=== PATIENT | female | born 1995 | race Caucasian/White ===

== ENCOUNTER → 2023-02-23 | Outpatient (REF) | payer BC | LOC: M SFHCWAGY 17:44 | PROVIDERS: ATTEND Nurse Practitioner Family | DX: Z12.4 Encounter for screening for malignant neoplasm of cervix (principal) ==

== ENCOUNTER → 2023-05-08 | Outpatient (CLI) | payer BC ==
[2023-05-08 15:46] LABS: HEMATOCRIT 39.2 % (36.0-47.0); HEMOGLOBIN 12.4 g/dl (12.0-15.5); MEAN CORPUSCULAR HEMOGLOBIN 26.6 pg (27.0-33.0); MEAN CORPUSCULAR HGB CONC 31.6 g/dl (32.0-36.5); MEAN CORPUSCULAR VOLUME 84.1 fl (80.0-96.0); PLATELET COUNT, AUTOMATED 303 10^3/uL (150-450); RED BLOOD COUNT 4.66 10^6/uL (4.00-5.40); WHITE BLOOD COUNT 9.1 10^3/uL (4.0-10.0)
[2023-05-08 16:03] LABS: ALKALINE PHOSPHATASE 100 U/L (46-116); ALT/SGPT 53 U/L (7.0-40); AST/SGOT 29 U/L (<34); BILIRUBIN,TOTAL 0.5 MG/DL (0.3-1.2); BLOOD UREA NITROGEN 11 MG/DL (9-23); CARBON DIOXIDE LEVEL 30 MMOL/L (20-31); CHLORIDE LEVEL 105 MMOL/L (98-107); CREATININE FOR GFR 0.78 MG/DL (0.55-1.30); GLOMERULAR FILTRATION RATE > 60.0 (>60); GLUCOSE, FASTING 88 MG/DL (60-100); POTASSIUM SERUM 4.3 MMOL/L (3.5-5.1); SODIUM LEVEL 141 MMOL/L (136-145); TOTAL PROTEIN 6.5 G/DL (5.7-8.2)
[2023-05-08 16:04] LABS: THYROID STIMULATING HORMONE 1.217 uIU/ML (0.55-4.78)
[2023-05-08 16:15] LABS: HEMOGLOBIN A1c 5.5 % (4.0-6.0)
== END ==
LOC: M PLALAB 11:46
PROVIDERS: ATTEND Obstetrics & Gynecology
DX: N97.9 Female infertility, unspecified (principal)

== ENCOUNTER → 2023-05-26 | Outpatient (CLI) | payer BC | LOC: M WHC 10:25 | PROVIDERS: ATTEND Obstetrics & Gynecology | DX: N97.9 Female infertility, unspecified (principal) ==

== ENCOUNTER → 2023-06-02 | Outpatient (CLI) | payer BC ==
[~2023-06-02] MED LIST: ISOVUE-370 76% 100ML VIAL As Ordered ONE
== END ==
LOC: M RADPRO 11:25
PROVIDERS: ATTEND Obstetrics & Gynecology
DX: N97.9 Female infertility, unspecified (principal)
CPT/HCPCS: 58340; 74740; Q9967

== ENCOUNTER → 2023-12-18 | Outpatient (CLI) | payer OTHER ==
[~2023-12-18] MED LIST changes: -ISOVUE-370 76% 100ML VIAL As Ordered ONE; +NAPR-837 PO; +ONDA4TAB6 PO
[2023-12-18 11:27] LABS: HEMATOCRIT 40.8 % (36.0-47.0); HEMOGLOBIN 13.4 g/dl (12.0-15.5); MEAN CORPUSCULAR HEMOGLOBIN 28.9 pg (27.0-33.0); MEAN CORPUSCULAR HGB CONC 32.8 g/dl (32.0-36.5); MEAN CORPUSCULAR VOLUME 87.9 fl (80.0-96.0); PLATELET COUNT, AUTOMATED 265 10^3/uL (150-450); RED BLOOD COUNT 4.64 10^6/uL (4.00-5.40); WHITE BLOOD COUNT 8.8 10^3/uL (4.0-10.0)
[2023-12-18 11:38] LABS: HEMOGLOBIN A1c 5.7 % (4.0-6.0)
[2023-12-18 11:59] LABS: GC DNA AMPLIFICATION NEGATIVE (NEGATIVE)
[2023-12-18 16:08] LABS: HIV 1&2 SCREEN NEGATIVE (NEGATIVE)
[2023-12-18 16:22] LABS: HEPATITIS C VIRUS ABY INDEX < 0.02 INDEX (<0.8)
== END ==
LOC: M PLALAB 08:27
PROVIDERS: ATTEND Advanced Practice Midwife
DX: Z34.01 Encounter for supervision of normal first pregnancy, first trimester (principal)

== ENCOUNTER → 2023-12-18 | Outpatient (CLI) | payer OTHER ==
[2023-12-18 11:24] LABS: ALBUMIN 3.7 G/DL (3.2-5.2); ALKALINE PHOSPHATASE 78 U/L (46-116); ALT/SGPT 36 U/L (7.0-40); AST/SGOT 13 U/L (<34); BILIRUBIN,TOTAL 0.6 MG/DL (0.3-1.2); BLOOD UREA NITROGEN 6 MG/DL (9-23); CALCIUM LEVEL 9.3 MG/DL (8.5-10.1); CARBON DIOXIDE LEVEL 26 MMOL/L (20-31); CHLORIDE LEVEL 105 MMOL/L (98-107); CHOLESTEROL LEVEL 151 MG/DL (<200); CHOLESTEROL RISK RATIO 2.81 (<5); CREATININE FOR GFR 0.65 MG/DL (0.55-1.30); GLOMERULAR FILTRATION RATE > 60.0 (>60); GLUCOSE, FASTING 113 MG/DL (60-100); HDL CHOLESTEROL 53.7 MG/DL (>40); LDL CHOLESTEROL 83.3 MG/DL (<100); NON-HDL-C 97.3 MG/DL; POTASSIUM SERUM 4.1 MMOL/L (3.5-5.1); SODIUM LEVEL 138 MMOL/L (136-145); THYROID STIMULATING HORMONE 0.985 uIU/ML (0.55-4.78); TOTAL PROTEIN 6.1 G/DL (5.7-8.2); TRIGLYCERIDES LEVEL 70 MG/DL (<150)
[2023-12-18 11:53] LABS: HEMOGLOBIN A1c 5.7 % (4.0-6.0)
[2023-12-18 11:56] LABS: BASO % 0.4 % (0.0-1.0); EOS # 0.1 10^3/uL (0.0-0.5); EOS % 0.9 % (0.0-3.0); HEMATOCRIT 40.2 % (36.0-47.0); HEMOGLOBIN 13.4 g/dl (12.0-15.5); LYMPH % 23.5 % (24.0-44.0); MEAN CORPUSCULAR HEMOGLOBIN 29.3 pg (27.0-33.0); MEAN CORPUSCULAR HGB CONC 33.3 g/dl (32.0-36.5); MONO # 0.4 10^3/uL (0.0-0.8); MONO % 5.2 % (2.0-8.0); NEUTROPHILS # 5.9 10^3/uL (1.5-8.5); NEUTROPHILS % 69.6 % (36.0-66.0); PLATELET COUNT, AUTOMATED 270 10^3/uL (150-450); RED BLOOD COUNT 4.57 10^6/uL (4.00-5.40); WHITE BLOOD COUNT 8.5 10^3/uL (4.0-10.0)
== END ==
LOC: M PLALAB 08:29
PROVIDERS: ATTEND Student in an Organized Health Care Education/Training Program
DX: D50.9 Iron deficiency anemia, unspecified (principal)

== ENCOUNTER → 2024-01-12 | Outpatient (CLI) | payer OTHER ==
[~2024-01-12] MED LIST changes: +ONDA-282 PO; -ONDA4TAB6 PO
== END ==
LOC: M PLALAB 15:03
PROVIDERS: ATTEND Obstetrics & Gynecology
DX: Z34.80 Encounter for supervision of other normal pregnancy, unspecified trimester (principal)

== ENCOUNTER → 2024-01-29 | Outpatient (CLI) | payer OTHER | LOC: M PLALAB 08:41 | PROVIDERS: ATTEND Obstetrics & Gynecology | DX: Z34.80 Encounter for supervision of other normal pregnancy, unspecified trimester (principal) ==

== ENCOUNTER → 2024-02-11 | Outpatient (REF) | payer OTHER | LOC: M SFHCPLAZ 17:08 | PROVIDERS: ATTEND Obstetrics & Gynecology | DX: Z34.80 Encounter for supervision of other normal pregnancy, unspecified trimester (principal) ==

== ENCOUNTER → 2024-02-19 | Outpatient (CLI) | payer OTHER | LOC: M WHC 13:15 | PROVIDERS: ATTEND Obstetrics & Gynecology | DX: Z34.82 Encounter for supervision of other normal pregnancy, second trimester (principal); Z3A.19 19 weeks gestation of pregnancy ==

== ENCOUNTER → 2024-04-11 | Outpatient (CLI) | payer OTHER, BC ==
[2024-04-11 17:38] LABS: HEMOGLOBIN 12.7 g/dl (12.0-15.5); MEAN CORPUSCULAR HEMOGLOBIN 30.8 pg (27.0-33.0); MEAN CORPUSCULAR HGB CONC 33.4 g/dl (32.0-36.5); PLATELET COUNT, AUTOMATED 233 10^3/uL (150-450); RED BLOOD COUNT 4.13 10^6/uL (4.00-5.40)
[2024-04-11 17:42] LABS: LDH LACTATE DEHYDROGENASE 133 U/L (120-246)
[2024-04-11 17:43] LABS: ALT/SGPT 26 U/L (7.0-40); AST/SGOT 10 U/L (<34); BILIRUBIN,TOTAL 0.3 MG/DL (0.3-1.2); CREATININE FOR GFR 0.56 MG/DL (0.55-1.30); GLOMERULAR FILTRATION RATE > 60.0 (>60)
[2024-04-11 17:44] LABS: URIC ACID 3.5 MG/DL (3.1-7.8)
[2024-04-11 18:03] LABS: CREATININE,RANDOM URINE 80.5 MG/DL
== END ==
LOC: M PLALAB 14:31
PROVIDERS: ATTEND Obstetrics & Gynecology
DX: O99.212 Obesity complicating pregnancy, second trimester (principal); E66.9 Obesity, unspecified; Z3A.00 Weeks of gestation of pregnancy not specified

== ENCOUNTER → 2024-04-11 | Outpatient (CLI) | payer OTHER ==
[2024-04-11 17:38] LABS: HEMATOCRIT 38.3 % (36.0-47.0); HEMOGLOBIN 12.8 g/dl (12.0-15.5); MEAN CORPUSCULAR HEMOGLOBIN 30.3 pg (27.0-33.0); MEAN CORPUSCULAR HGB CONC 33.4 g/dl (32.0-36.5); MEAN CORPUSCULAR VOLUME 90.5 fl (80.0-96.0); PLATELET COUNT, AUTOMATED 250 10^3/uL (150-450); RED BLOOD COUNT 4.23 10^6/uL (4.00-5.40)
== END ==
LOC: M PLALAB 13:29
PROVIDERS: ATTEND Advanced Practice Midwife
DX: O99.212 Obesity complicating pregnancy, second trimester (principal); Z3A.00 Weeks of gestation of pregnancy not specified

== ENCOUNTER → 2024-04-29 | Outpatient (CLI) | payer OTHER | LOC: M WHC 15:18 | PROVIDERS: ATTEND Advanced Practice Midwife | DX: O99.213 Obesity complicating pregnancy, third trimester (principal); E66.9 Obesity, unspecified; Z3A.29 29 weeks gestation of pregnancy ==

== ENCOUNTER → 2024-06-03 | Outpatient (CLI) | payer OTHER | LOC: M RAD 14:20 | PROVIDERS: ATTEND Advanced Practice Midwife | DX: O99.210 Obesity complicating pregnancy, unspecified trimester (principal) ==

== ENCOUNTER → 2024-06-10 | Outpatient (REF) | payer OTHER ==
[~2024-06-10] MED LIST changes: +ALBU8.5H INH; +CETI-24 PO; +ECOT81TA5 PO; +LABE200T5 PO; +PRENTAB9 PO
== END ==
LOC: M PLALAB 14:11
PROVIDERS: ATTEND Advanced Practice Midwife
DX: O13.3 Gestational [pregnancy-induced] hypertension without significant proteinuria, third trimester (principal)

== ENCOUNTER 2024-06-16 12:07 | Outpatient (CLI) | payer OTHER ==
[~2024-06-16] VITALS: Ht 170.2 cm; Wt 149.7 kg
[~2024-06-16 12:07] MED LIST changes: -ALBU8.5H INH; -CETI-24 PO; -ECOT81TA5 PO; -LABE200T5 PO; -PRENTAB9 PO
[2024-06-16] MEDS ORDERED: ECOT81TA5 PO (12:24)
[2024-06-16] MEDS ORDERED: LABE200T5 PO (12:24)
[2024-06-16] MEDS ORDERED: ALBU8.5H INH (12:24)
[2024-06-16] MEDS ORDERED: CETI-24 PO (12:24)
[2024-06-16] MEDS ORDERED: PRENTAB9 PO (12:24)
[2024-06-16] MEDS ORDERED: HOME MED LIST COMPLETE! XX SCH (12:25)
[2024-06-16 12:26] VITALS: BP 135/72
[2024-06-16 14:21] VITALS: BP 137/83
== END 2024-06-16 14:36 | disposition home or self-care (01) ==
LOC: M LDO 12:07
PROVIDERS: ATTEND Obstetrics & Gynecology
DX: O36.8130 Decreased fetal movements, third trimester, not applicable or unspecified (principal); O13.3 Gestational [pregnancy-induced] hypertension without significant proteinuria, third trimester; O99.213 Obesity complicating pregnancy, third trimester; E66.01 Morbid (severe) obesity due to excess calories; Z3A.35 35 weeks gestation of pregnancy; Z88.0 Allergy status to penicillin; Z88.2 Allergy status to sulfonamides; Z91.013 Allergy to seafood
CPT/HCPCS: 59025; 76815; 76819; 76820; G0463

== ENCOUNTER 2024-06-24 08:20 | Inpatient (IN) | payer OTHER ==
[~2024-06-24] VITALS: Ht 170.2 cm; Wt 150.9 kg
[2024-06-24] VITALS (16 sets, daily range): BP systolic 128–178; BP diastolic 58–98
[~2024-06-24 08:20] MED LIST changes: +ALBU8.5H INH; +CETI-24 PO; +ECOT81TA5 PO; +LABE200T5 PO; +PRENTAB9 PO
[2024-06-24] MEDS ORDERED: TUMS750C5 PO (08:56)
[2024-06-24] MEDS ORDERED: HOME MED LIST COMPLETE! XX SCH (09:05)
[2024-06-24] MEDS ORDERED: OXYTOCIN DRIP 30 UNITS in IV 1 EA IV PRN (09:20)
[2024-06-24] MEDS: LACTATED RINGER'S 1000 ML IV STA (09:20)
[2024-06-24] MEDS ORDERED: TRANEXAMIC ACID INJection 1,000 MG in NS 100 ML IV PRN (09:20)
[2024-06-24] MEDS ORDERED: LIDOCAINE 1% MDV 20ML VIAL INFIL PRN (09:20)
[2024-06-24] MEDS ORDERED: CARBOPROST TROMETHAMINE 250 MCG/ML AMP IM PRN (09:20)
[2024-06-24] MEDS: miSOPROStol 50MCG 1/2 TABLET PO SCH (09:43)
[2024-06-24 10:04] LABS: HEMATOCRIT 35.4 % (36.0-47.0); HEMOGLOBIN 12.1 g/dl (12.0-15.5); MEAN CORPUSCULAR HEMOGLOBIN 30.8 pg (27.0-33.0); MEAN CORPUSCULAR HGB CONC 34.2 g/dl (32.0-36.5); MEAN CORPUSCULAR VOLUME 90.1 fl (80.0-96.0); PLATELET COUNT, AUTOMATED 216 10^3/uL (150-450); RED BLOOD COUNT 3.93 10^6/uL (4.00-5.40); WHITE BLOOD COUNT 11.1 10^3/uL (4.0-10.0)
[2024-06-24 10:21] LABS: URIC ACID 4.4 MG/DL (3.1-7.8)
[2024-06-24 10:23] LABS: LDH LACTATE DEHYDROGENASE 168 U/L (120-246)
[2024-06-24 10:24] LABS: ALT/SGPT 28 U/L (7.0-40); AST/SGOT 15 U/L (<34); BILIRUBIN,TOTAL 0.4 MG/DL (0.3-1.2); CREATININE FOR GFR 0.54 MG/DL (0.55-1.30); GLOMERULAR FILTRATION RATE > 60.0 (>60)
[2024-06-24 11:05] LABS: HEPATITIS C VIRUS ABY INDEX 0.16 INDEX (<0.8)
[2024-06-24 13:28] LABS: CREATININE,RANDOM URINE 54.7 MG/DL
[2024-06-24] MEDS: LABETALOL 200 MG TAB PO SCH (21:40)
[2024-06-25] VITALS (46 sets, daily range): BP systolic 130–194; BP diastolic 65–106
[2024-06-25] MEDS: OXYTOCIN DRIP 30 UNITS in IV 1 EA IV SCH (10:54)
[2024-06-25] MEDS: LABETALOL 100MG/20ML VIAL IV STA ×2 (15:46→16:13)
[2024-06-25] MEDS: PROMETHAZINE 25MG/ML 1ML VIAL IV ONE ×2 (17:27→20:39)
[2024-06-25] MEDS: BUTORPHANOL 2 MG/ML 1ML VIAL IV ONE ×2 (17:28→20:40)
[2024-06-25] MEDS ORDERED: ONDANSETRON 4MG 2ML VIAL IV PRN (23:20)
[2024-06-25] MEDS ORDERED: LR 500 ML IV PRN (23:20)
[2024-06-25] MEDS ORDERED: diphenhydrAMINE 50MG/ML VIAL IV PRN (23:20)
[2024-06-25] MEDS ORDERED: NALOXONE INJ 0.4MG/1ML VIAL IV PRN (23:20)
[2024-06-25] MEDS ORDERED: EPIDURAL/PCA KEYS XX PRN (23:20)
[2024-06-25] MEDS ORDERED: ePHEDrine SULFATE 25 MG/5 ML(5MG/ML) SYRINGE IVP PRN (23:20)
[2024-06-25] MEDS: FENTANYL/ROPIVACAINE/NACL BAG 100 ML EPIDURAL SCH (23:30)
[2024-06-26] VITALS (28 sets, daily range): BP systolic 114–144; BP diastolic 55–94; TEMP 98.6; O2SAT 96–98
[2024-06-26] MEDS ORDERED: GENTAMICIN 400 MG in IV FLUID PLACE HOLDER 1 EA IV ONE (07:55)
[2024-06-26] MEDS: CALCIUM CARBONATE 500 MG CHEW U/D PO ONE (08:18)
[2024-06-26] MEDS: BICITRA 30ML SOLN UDC PO ONE (08:23)
[2024-06-26] MEDS: CLINDAMYCIN 900 MG in IV 1 EA IV ONE (08:23)
[2024-06-26] MEDS: AZITHROMYCIN INJ 500 MG, VIAL MATE ADAPTER 1 EACH in NS 250 ML IV ONE (08:23)
[2024-06-26 08:28] LABS: HEMATOCRIT 36.6 % (36.0-47.0); HEMOGLOBIN 12.6 g/dl (12.0-15.5); MEAN CORPUSCULAR HEMOGLOBIN 31.1 pg (27.0-33.0); MEAN CORPUSCULAR HGB CONC 34.4 g/dl (32.0-36.5); MEAN CORPUSCULAR VOLUME 90.4 fl (80.0-96.0); PLATELET COUNT, AUTOMATED 212 10^3/uL (150-450); RED BLOOD COUNT 4.05 10^6/uL (4.00-5.40)
[2024-06-26] MEDS: GENTAMICIN 400 MG in D5W 50 ML IV ONE (09:04)
[2024-06-26] MEDS ORDERED: NALOXONE INJ 0.4MG/1ML VIAL IV PRN ×2 (09:20)
[2024-06-26] MEDS ORDERED: METOCLOPRAMIDE INJ 10MG/2ML VIAL IV PRN (09:20)
[2024-06-26] MEDS ORDERED: SLF 3 ML SYR IV SCH (09:20)
[2024-06-26] MEDS ORDERED: diphenhydrAMINE 50MG/ML VIAL IV PRN (09:20)
[2024-06-26] MEDS ORDERED: **NOTE PATIENT COMMENT** MISC XX SCH (09:20)
[2024-06-26] MEDS ORDERED: ONDANSETRON 4MG 2ML VIAL IV PRN (09:20)
[2024-06-26] MEDS ORDERED: ONDANSETRON 4MG 2ML VIAL As Ordered ONE (10:13)
[2024-06-26] MEDS ORDERED: LIDOCAINE 2% W/EPINEPHRINE 20ML VIAL **PRES FREE As Ordered ONE (10:13)
[2024-06-26] MEDS ORDERED: MORPHINE PRES-FREE INJ 10 MG/10 ML VIAL As Ordered ONE (10:13)
[2024-06-26] MEDS ORDERED: LABETALOL 100MG/20ML VIAL As Ordered ONE (10:13)
[2024-06-26] MEDS ORDERED: KETOROLAC 60MG 2ML VIAL As Ordered ONE (10:13)
[2024-06-26] MEDS ORDERED: ACETAMINOPHEN 1000MG/100ML IV BAG As Ordered ONE (10:13)
[2024-06-26] MEDS ORDERED: METOCLOPRAMIDE INJ 10MG/2ML VIAL As Ordered ONE (10:13)
[2024-06-26] MEDS ORDERED: TRANEXAMIC ACID 100 MG/ML 10ML VIAL As Ordered ONE (10:48)
[2024-06-26 10:49] LABS: CORD GAS ABE V -4.6; CORD GAS HCO3 V 20.8 MMOL/L; CORD GAS O2 SAT V 76.9 %; CORD GAS PCO2 V 39.8 mmHg; CORD GAS PH V 7.336 UNITS; CORD GAS PO2 V 33.4 mmHg; CORD GAS SBC V 20.2 MMOL/L
[2024-06-26] MEDS ORDERED: oxyCODONE 5MG TAB PO PRN ×2 (10:50)
[2024-06-26] MEDS ORDERED: RHOGAM 300MCG (1500IU) INJ IM SCH (10:50)
[2024-06-26] MEDS ORDERED: SIMETHICONE 80MG CHEW TAB PO PRN (10:50)
[2024-06-26 10:51] LABS: CORD GAS ABE A -3.6; CORD GAS HCO3 A 24.3 MMOL/L; CORD GAS O2 SAT A 64.7 %; CORD GAS PCO2 A 53.7 mmHg; CORD GAS PH A 7.273 UNITS; CORD GAS SBC A 20.6 MMOL/L; CORD GAS TCO2 A 25.9 MMOL/L
[2024-06-26] MEDS ORDERED: OXYTOCIN 30UNITS IN 0.9% NaCl 500ML IV BAG As Ordered ONE (10:52)
[2024-06-26] MEDS ORDERED: SODIUM BICARBONATE 8.4% INJ 50MEQ 50ML VIAL As Ordered ONE (10:53)
[2024-06-26] MEDS ORDERED: IBUP-1022 PO (10:56)
[2024-06-26] MEDS ORDERED: OXYC-517 PO (10:56)
[2024-06-26] MEDS ORDERED: COLA100C5 PO (10:56)
[2024-06-26] MEDS ORDERED: ACET-683 PO (10:56)
[2024-06-26] MEDS: OXYTOCIN DRIP 30 UNITS in IV 1 EA IV SCH (11:54)
[2024-06-26] MEDS: ACETAMINOPHEN 500 MG TAB PO SCH (16:38)
[2024-06-26] MEDS: KETOROLAC 30 MG/ML 1ML VIAL IV SCH (16:39)
[2024-06-26] MEDS: ENOXAPARIN 40MG/0.4ML SYRINGE (J1650 PER 10MG) SC SCH (17:49)
[2024-06-27] VITALS (7 sets, daily range): BP systolic 116–135; BP diastolic 59–90; O2SAT 95–99
[2024-06-27 07:28] LABS: HEMATOCRIT 27.4 % (36.0-47.0); MEAN CORPUSCULAR HEMOGLOBIN 30.7 pg (27.0-33.0); MEAN CORPUSCULAR HGB CONC 33.9 g/dl (32.0-36.5); MEAN CORPUSCULAR VOLUME 90.4 fl (80.0-96.0); PLATELET COUNT, AUTOMATED 210 10^3/uL (150-450); RED BLOOD COUNT 3.03 10^6/uL (4.00-5.40); WHITE BLOOD COUNT 18.3 10^3/uL (4.0-10.0)
[2024-06-27 07:36] LABS: HEMOGLOBIN 9.3 g/dl (12.0-15.5)
[2024-06-27] MEDS: PRENATAL VITAMINS CHEWABLE TABLET PO SCH (08:45)
[2024-06-27] MEDS: IBUPROFEN 600MG TAB PO SCH (12:49)
[2024-06-28 02:00] VITALS: BP 135/66; O2SAT 98
[2024-06-28 06:00] VITALS: BP 133/73; O2SAT 99
[2024-06-28 08:00] VITALS: BP 136/71
[2024-06-28 08:05] VITALS: BP 136/71
[2024-06-28] MEDS ORDERED: MEASLES,MUMPS,RUBELLA VACCINE INJ (MMR-II) SC.IMMUN ONE (09:00)
[2024-06-28 10:04] VITALS: BP 118/58; O2SAT 98
[2024-06-28 14:00] VITALS: BP 142/93; O2SAT 100
== END 2024-06-28 17:10 | disposition home or self-care (01) | DRG 788 ==
LOC: M LDI 08:20 → M OBS 06-26 12:20
PROVIDERS: ADMIT Obstetrics & Gynecology; ATTEND Obstetrics & Gynecology
PROC: 3E0P7GC Introduction of Other Therapeutic Substance into Female Reproductive, Via Natural or Artificial Opening (ICD-10-PCS; 2024-06-24)
PROC: 10D00Z1 Extraction of Products of Conception, Low, Open Approach (ICD-10-PCS; principal; 2024-06-26 08:30)
DX: O13.4 Gestational [pregnancy-induced] hypertension without significant proteinuria, complicating childbirth (principal); Z3A.37 37 weeks gestation of pregnancy; Z88.0 Allergy status to penicillin; Z88.2 Allergy status to sulfonamides; Z79.82 Long term (current) use of aspirin; Z79.899 Other long term (current) drug therapy; O62.0 Primary inadequate contractions; Z37.0 Single live birth

== ENCOUNTER → 2024-11-10 | Outpatient (REF) | payer OTHER ==
[~2024-11-10] MED LIST changes: +ACET-683 PO; +COLA100C5 PO; +IBUP-1022 PO; +OXYC-517 PO; +TUMS750C5 PO
[2024-11-12 15:02] LABS: HPV APTIMA Not Detected (Not Detected)
== END ==
LOC: M SFHCWAGY 13:28
PROVIDERS: ATTEND Obstetrics & Gynecology
DX: Z12.4 Encounter for screening for malignant neoplasm of cervix (principal)
CPT/HCPCS: 87624; G0123

== ENCOUNTER → 2025-06-14 | Outpatient (REF) | payer BC ==
[~2025-06-14] MED LIST changes: -IBUP-1022 PO; +IBUP600T42 PO
== END ==
LOC: M PLALAB 13:19
PROVIDERS: ATTEND Advanced Practice Midwife
DX: O36.80X0 Pregnancy with inconclusive fetal viability, not applicable or unspecified (principal); Z3A.00 Weeks of gestation of pregnancy not specified

== ENCOUNTER → 2025-06-16 | Outpatient (CLI) | payer BC | LOC: M PLALAB 11:27 | PROVIDERS: ATTEND Advanced Practice Midwife | DX: O36.80X0 Pregnancy with inconclusive fetal viability, not applicable or unspecified (principal); Z3A.00 Weeks of gestation of pregnancy not specified ==

== ENCOUNTER → 2025-06-29 | Outpatient (CLI) | payer BC ==
[~2025-06-29] MED LIST changes: -LABE200T5 PO; +LABE200T86 PO
== END ==
LOC: M WHC 06:40
PROVIDERS: ATTEND Advanced Practice Midwife
DX: O36.80X0 Pregnancy with inconclusive fetal viability, not applicable or unspecified (principal)